=== PATIENT | female | born 1995 | race Hispanic/Latino ===

== ENCOUNTER 2019-06-07 02:53 | Emergency (ER) | payer BC, SELFPAY | END 2019-06-07 03:15 | disposition home or self-care (01) | LOC: ERS 02:53 | DX: H66.91 Otitis media, unspecified, right ear (principal); G43.909 Migraine, unspecified, not intractable, without status migrainosus | CPT/HCPCS: 99282 ==

== ENCOUNTER 2020-07-03 13:50 | Outpatient (CLI) | payer BC ==
--- NOTE | 2020-07-03 15:59 | ULT ---
EXAM: US Hepatic Doppler PROVIDED CLINICAL HISTORY: Abnormal liver function tests. COMPARISON: None FINDINGS: Majority of the pancreas is obscured by bowel gas. The limited visualized portions of the pancreas de monstrate a normal sonographic appearance. The proximal abdominal aorta is visualized and normal in caliber. Limited visualized IVC has a normal sonographic appearance. The gallbladder is contracted. As result, the gallbladder is not well evaluated on this exam. No obvi ous gallbladder calculus is seen. The common duct is not well delineated. The common duct measures 0.4 cm in diameter which is within normal limits. The liver demonstrates mild increased echogenicity relative to the right kidney suggesting fatty infi ltration. The spleen has a normal sonographic appearance and is at the upper limits of normal in size. Hepatic Doppler evaluation with spectral analysis demonstrates arterial waveforms in the hepatic and splenic arteries. Hepatopetal flow is present within the hepatic, portal, and splenic veins. IMPRESSION: 1. Mild fatty infiltration liver. 2. Incomplete distention of the gallbladder; no obvious gallbladder calculus is seen. Common duct is normal in caliber. 3. Hepatopetal flow.
== END 2020-07-03 13:51 | disposition home or self-care (01) ==
LOC: BICULT 13:50
PROVIDERS: ATTEND Internal Medicine Gastroenterology
DX: R94.5 Abnormal results of liver function studies (principal); K76.0 Fatty (change of) liver, not elsewhere classified; K82.8 Other specified diseases of gallbladder
CPT/HCPCS: 76705

== ENCOUNTER 2020-08-07 12:14 | Outpatient (CLI) | payer BC ==
--- NOTE | 2020-08-07 13:23 | MRI ---
MRI brain noncontrast HISTORY: Worsening headaches. FINDINGS: There is no evidence of acute intracranial hemorrhage or infarct. The ventricles appear nor mal in size, shape and position. There is no mass effect or shift of midline structures. Cerebellar tonsillar ectopia in that the tonsils approach the foramen magnum but retain a normal roun ded configuration. Lobular mucous retention cyst noted at the floor of the right maxillary sinus. IMPRESSION : No acute intracranial abnormalities are demonstrated.
== END 2020-08-07 12:15 | disposition home or self-care (01) ==
LOC: BICMRI 12:14
PROVIDERS: ATTEND Family Medicine
DX: G44.89 Other headache syndrome (principal)
CPT/HCPCS: 70551

== ENCOUNTER 2020-10-02 19:30 | Outpatient (CLI) | payer BC | END 2020-10-02 19:31 | disposition home or self-care (01) | LOC: SLEEPLAB 19:30 | PROVIDERS: ATTEND Specialist | DX: G47.33 Obstructive sleep apnea (adult) (pediatric) (principal); R53.83 Other fatigue; G31.84 Mild cognitive impairment of uncertain or unknown etiology; E66.9 Obesity, unspecified; F41.9 Anxiety disorder, unspecified; R06.83 Snoring; F32.9 Major depressive disorder, single episode, unspecified; G47.10 Hypersomnia, unspecified; G47.00 Insomnia, unspecified; G47.52 REM sleep behavior disorder; Z68.37 Body mass index [BMI] 37.0-37.9, adult | CPT/HCPCS: 95810 ==